=== PATIENT | male | born 1985 | race African-American/Black ===

== ENCOUNTER 2020-08-09 16:24 | Emergency (ER) | payer BC ==
[~2020-08-09] VITALS: Ht 203.2 cm; Wt 132.0 kg
[2020-08-09] MEDS ORDERED: ONDANSETRON 4MG ODT PO ONE (17:00)
[2020-08-09] MEDS ORDERED: HYDROCODONE/ACETAMINOPHEN 5/325MG TABLET PO ONE (17:00)
[2020-08-09] MEDS ORDERED: LIDOCAINE HCL/PF 1% 10 MG/ML 5ML VIAL IJ ONE (18:00)
[2020-08-09] MEDS ORDERED: SULF1TAB48 MT (19:03)
[2020-08-09] MEDS ORDERED: TOPUD MT (19:03)
[2020-08-09] MEDS ORDERED: CEPH500T PO (19:03)
[2020-08-09 19:25] VITALS: BP 159/91
== END 2020-08-09 19:25 | disposition home or self-care (01) ==
LOC: ER 16:24
DX: S60.452A Superficial foreign body of right middle finger, initial encounter (principal); W29.4XXA Contact with nail gun, initial encounter; Y93.89 Activity, other specified; Y92.018 Other place in single-family (private) house as the place of occurrence of the external cause
CPT/HCPCS: 73140; 99283; J3490; Q0162; Z7610